=== PATIENT | female | born 2005 | race Caucasian/White ===

== ENCOUNTER 2023-03-26 18:29 | Inpatient (IN) | payer MEDICAID ==
[2023-03-26] MEDS ORDERED: Calcium Carbonate 500 MG Tab.Chew PO PRN (19:24)
[2023-03-26] MEDS ORDERED: Sodium Chloride 0.9% 10 ML Syringe FLUSH PRN (19:24)
[2023-03-26] MEDS ORDERED: Ampicillin 2 GM in Sodium Chloride 0.9% 100 ML IV ONE (19:24)
[2023-03-26] MEDS ORDERED: Ondansetron 4 MG/2 ML SDV IVPUSH PRN (19:24)
[2023-03-26] MEDS ORDERED: Nalbuphine 10 MG/0.5 ML Syringe IVPUSH PRN (19:24)
[2023-03-26] MEDS ORDERED: Oxytocin/Lactated Ringers 10 UNIT/1,000 ML BAG IV SCH ×2 (19:30)
[2023-03-26 19:52] LABS: BASOPHILS ABSOLUTE AUTO 0.01 K/mm3 (0.01-0.08); BASOPHILS PERCENT AUTO 0.1 % (0.1-1.2); EOSINOPHILS ABSOLUTE AUTO 0.12 K/mm3 (0.04-0.36); EOSINOPHILS PERCENT AUTO 1.3 (0.7-5.8); HEMATOCRIT 37.8 % (34.1-44.9); HEMOGLOBIN 12.4 gm/dl (11.2-15.7); IMMATURE GRAN ABSOLUTE AUTO 0.02 K/mm3 (0.00-0.10); IMMATURE GRAN PERCENT AUTO 0.2 % (<=1.0); LYMPHOCYTES ABSOLUTE AUTO 1.94 K/mm3 (1.18-3.74); LYMPHOCYTES PERCENT AUTO 20.2 % (19.3-51.7); MEAN CORPUSCULAR HEMOGLOBIN 28.8 pg (25.6-32.2); MEAN CORPUSCULAR HGB CONC 32.8 g/dl (32.2-35.5); MEAN CORPUSCULAR VOLUME 87.7 fl (79.4-94.8); MEAN PLATELET VOLUME 11.1 fl (9.4-12.3); MONOCYTES PERCENT AUTO 8.3 % (4.7-12.5); NEUTROPHILS PERCENT AUTO 69.9 % (34.0-71.1); PLATELET COUNT,PLT 339 K/mm3 (182-369); RED BLOOD CELL COUNT 4.31 M/mm3 (3.98-5.22); WHITE BLOOD CELL COUNT,WBC 9.59 K/mm3 (3.98-10.04)
[2023-03-26] MEDS: Lactated Ringers 1,000 ML IV SCH ×2 (20:07→23:15)
[2023-03-26] MEDS ORDERED: Sodium Chloride 0.9% 10 ML Syringe FLUSH SCH (21:00)
[2023-03-26] MEDS ORDERED: diphenhydrAMINE 50 MG/ML SDV IVPUSH PRN (23:07)
[2023-03-26] MEDS ORDERED: fentaNYL 100 MCG/2 ML SDV EPIDUR PRN (23:07)
[2023-03-26] MEDS ORDERED: ePHEDrine 50 MG/ML SDV IVPUSH PRN (23:07)
[2023-03-26] MEDS ORDERED: Bupivacaine/fentaNYL/NS 100 ML Bag EPIDUR PRN (23:07)
[2023-03-26] MEDS ORDERED: Ampicillin 1 GM in Sodium Chloride 0.9% 100 ML IV SCH (23:30)
[2023-03-27] MEDS ORDERED: Witch Hazel Medicated Pads 40/Jar TOP PRN (02:58)
[2023-03-27] MEDS ORDERED: Benzocaine/Menthol 20%-0.5% Spray 78 GM Cannister TOP PRN (02:58)
[2023-03-27] MEDS ORDERED: Docusate Sodium 100 MG Cap PO PRN (02:58)
[2023-03-27] MEDS ORDERED: Acetaminophen 325 MG Tab PO PRN (02:58)
[2023-03-27] MEDS: Ibuprofen 600 MG Tab PO PRN ×2 (10:29→19:40)
[2023-03-28] MEDS: Ibuprofen 600 MG Tab PO PRN (16:54)
== END 2023-03-28 16:40 | disposition home or self-care (01) | DRG 807 ==
LOC: JD.OBCHECK 18:29 → JD.OB 18:32 → JD.OBCHECK 19:23 → JD.OB 19:24 → OBSVTOIN 03-27 02:27 → JD.OB 03-27 02:28
PROVIDERS: ADMIT Obstetrics & Gynecology; ATTEND Obstetrics & Gynecology
PROC: 10E0XZZ Delivery of Products of Conception, External Approach (ICD-10-PCS; principal; 2023-03-27)
PROC: 0KQM0ZZ Repair Perineum Muscle, Open Approach (ICD-10-PCS; 2023-03-27)
PROC: 3E0R3BZ Introduction of Anesthetic Agent into Spinal Canal, Percutaneous Approach (ICD-10-PCS; 2023-03-27)
PROC: 00HU33Z Insertion of Infusion Device into Spinal Canal, Percutaneous Approach (ICD-10-PCS; 2023-03-27)
DX: O42.02 Full-term premature rupture of membranes, onset of labor within 24 hours of rupture (principal); Z37.0 Single live birth; Z3A.39 39 weeks gestation of pregnancy; Z87.891 Personal history of nicotine dependence; O99.824 Streptococcus B carrier state complicating childbirth; O70.1 Second degree perineal laceration during delivery
CPT/HCPCS: 36415; 51702; 59025; 59409; 84112; 85025; 86592; 86850; 86900; 86901; A9270-GY; J0290; J2300; J2590; J3490; J7120

== ENCOUNTER 2023-03-30 21:29 | Emergency (ER) | payer MEDICAID ==
[2023-03-30 22:27] LABS: BASOPHILS ABSOLUTE AUTO 0.01 K/mm3 (0.01-0.08); BASOPHILS PERCENT AUTO 0.1 % (0.1-1.2); EOSINOPHILS ABSOLUTE AUTO 0.21 K/mm3 (0.04-0.36); EOSINOPHILS PERCENT AUTO 2.1 (0.7-5.8); HEMATOCRIT 32.8 % (34.1-44.9); HEMOGLOBIN 10.8 gm/dl (11.2-15.7); IMMATURE GRAN ABSOLUTE AUTO 0.06 K/mm3 (0.00-0.10); IMMATURE GRAN PERCENT AUTO 0.6 % (<=1.0); LYMPHOCYTES ABSOLUTE AUTO 1.84 K/mm3 (1.18-3.74); LYMPHOCYTES PERCENT AUTO 18.8 % (19.3-51.7); MEAN CORPUSCULAR HGB CONC 32.9 g/dl (32.2-35.5); MEAN CORPUSCULAR VOLUME 87.9 fl (79.4-94.8); MEAN PLATELET VOLUME 9.9 fl (9.4-12.3); MONOCYTES ABSOLUTE AUTO 0.69 K/mm3 (0.24-0.36); MONOCYTES PERCENT AUTO 7.1 % (4.7-12.5); NEUTROPHILS ABSOLUTE AUTO 6.97 K/mm3 (1.56-6.13); NEUTROPHILS PERCENT AUTO 71.3 % (34.0-71.1); PLATELET COUNT,PLT 394 K/mm3 (182-369); RED BLOOD CELL COUNT 3.73 M/mm3 (3.98-5.22); WHITE BLOOD CELL COUNT,WBC 9.78 K/mm3 (3.98-10.04)
== END 2023-03-30 23:48 | disposition home or self-care (01) ==
LOC: JD.ED 21:29
DX: O72.1 Other immediate postpartum hemorrhage (principal); Z91.018 Allergy to other foods
CPT/HCPCS: 36415; 85025; 99282; 99284